=== PATIENT | female | born 1985 | race Caucasian/White ===

== ENCOUNTER 2022-03-30 14:21 | Outpatient (REF) | payer BC, SELFPAY ==
--- NOTE | ~2022-03-30 | MM_ITS ---
EXAMINATION: MM DIAGNOSTIC DIGITAL BREAST TOMOSYNTHESIS, BILATERAL Left breast ultrasound CLINICAL INFORMATION: Left breast lump 10:00 The lifetime risk of breast cancer based on the Tyrer-Cuzick Model is 16.3%. COMPARISON: Mammography: None TECHNIQUE: Digital breast tomosynthesis is performed in both the craniocaudal and mediolateral oblique views along with computer-aided detection (CAD). Synthesized 2D images are generated from the tomosynthesis. Targeted left breast ultrasound FINDINGS: The breasts are heterogeneously dense, which may obscure small masses (ACR BI-RADS breast composition Category c). About the inferior medial aspect deep left breast there is a hazy density present adjacent to the skin without calcifications or spiculation.The remainder of the bilateral mammography. Unremarkable. Targeted left breast ultrasound demonstrated an approximately 2.0 x 1.5 x 0.6 cm hypoechoic well-circumscribed lesion with some adjacent vascularity and is difficult to tell whether it may be a dermal lesion with displacement of parenchyma or a hypodermal lesion. Patient states that this has gotten larger and smaller at times and at one time whitish-yellow material was expressed. This may represent a sebaceous cyst or epidermal cyst if it lies in the dermis versus possible adenomyosis or fibroadenoma. Breast cancer with seed much less likely. Clinical follow-up is recommended. Results are discussed with the patient at time of visit. MM/MM tomosynthesis diagnostic BI IMPRESSION: The palpable abnormality appears to be either a dermal or hypodermal lesion with benign characteristics. Patient states that this has gotten larger and smaller over time. Clinical follow-up is recommended. ASSESSMENT: BI-RADS 3: Probably Benign RECOMMENDATION: Clinical management This patient's information was entered into a reminder system with a target due date for their next mammogram.
== END 2022-03-30 14:22 | disposition home or self-care (01) ==
LOC: HO.MAMMO 14:21
PROVIDERS: Visit Provider Nurse Practitioner Family
DX: N63.22 Unspecified lump in the left breast, upper inner quadrant (principal)
CPT/HCPCS: 76642; 77062; 77066

== ENCOUNTER 2022-12-26 10:56 | Outpatient (REF) | payer SELFPAY ==
--- NOTE | ~2022-12-26 | US_ITS ---
EXAMINATION: US DIAGNOSTIC ULTRASOUND BREAST, LEFT CLINICAL INFORMATION: Six-month follow up left breast hypoechoic lesion which may be a dermal or hypodermal lesion. COMPARISON: 03/30/2022. TECHNIQUE: Ultrasound of the breast is performed with real-time glover scale imaging and color Doppler. FINDINGS: The left breast lesion 9 o'clock position, 11 cm from the nipple, has significantly decreased in size, now measuring 3 to 4 mm in diameter as compared to 1.5 x 0.6 cm on prior study. There is some increased through sound transmission present with the structure having some low-level echoes present. On today's study it is noted that the lesion is a dermal lesion and not hypodermal. No internal vascularity is seen; however, a large amount of adjacent vascularity is present. No follow up is recommended for this finding. At initial time of the examination, I had said I would be recommending a 1 year follow up study; however, at time of dictation I decided that due to the significant decrease in size in lesion, now being seen to be dermal, that a year follow up study would not be necessary. US/US breast LT limited IMPRESSION: Hypoechoic lesion left breast 9 o'clock position, 11 cm from the nipple, has significantly decreased in size and is seen to be dermal as described. ASSESSMENT: BI-RADS 2: Benign. RECOMMENDATION: Clinical management and routine mammography at age 41.
== END 2022-12-26 10:57 | disposition home or self-care (01) ==
LOC: HO.MAMMO 10:56
PROVIDERS: PCP Internal Medicine; Visit Provider Internal Medicine
DX: N63.25 Unspecified lump in the left breast, overlapping quadrants (principal)
CPT/HCPCS: 76642